=== PATIENT | female | born 1940 | race African-American/Black ===

== ENCOUNTER 2016-10-21 06:49 | Inpatient (IN) | payer OTHER, BC ==
[~2016-10-21] VITALS: Ht 165.1 cm; Wt 79.6 kg
--- NOTE | ~2016-10-21 | H ---
[facility] [place] [address] HISTORY AND PHYSICAL Name: TABITHA PRINGLE Room #: 441-P ADM IN M.R.#: [id number] Admission: 10/21/16 Attend Phys: Catina Scott Discharge: Date of : 36 Report #: [id number] THIS REPORT FOR: //name// CC: ELIZ Mallory CHIEF COMPLAINT: This is a 76-year-old female with diarrhea times 10 days. HISTORY OF PRESENT ILLNESS: This is a patient who lives for the most part independently and has been doing well up until about 10 days ago when she had the onset of diarrhea that continued. She tried [id number]-[id number] medications, but this did not fix the problem and she also had associated nausea, vomiting and anorexia. Denies fevers, chills or sweats, may have had a little bit of blood in her stool, but not sure. She then got so weak at home that she fell and had to come to the hospital and is subsequently admitted. PAST MEDICAL HISTORY: Noteworthy for ischemic heart disease, diabetes, hypertension, cardiomyopathy on an ischemic basis. She has had a previous history of thyroid disease, had an ovarian dermoid cyst in the past. PAST SURGICAL HISTORY: Includes cholecystectomy, total left knee replacement, total abdominal hysterectomy. She had a pacemaker implantation. She has also had left knee replacement and numerous stent placements in the coronary circulation. MEDICATIONS: List includes carvedilol, atorvastatin, lisinopril, furosemide, NovoLog 5 units 3 times a day, amiodarone 200 mg daily, Lantus 15 units at bedtime and Coumadin 2.5 mg daily. FAMILY HISTORY: Noncontributory. ALLERGIES: She has no known allergies. REVIEW OF SYSTEMS: Otherwise, negative. PHYSICAL EXAMINATION: GENERAL: Shows her to be frail in appearance, but in no distress. VITAL SIGNS: Stable. HEENT: Otherwise, negative. NECK: Supple, without thyromegaly or adenopathy. CHEST: Clear. CARDIOVASCULAR: Shows a regular rate and rhythm without murmur. ABDOMEN: Soft and nontender, without hepatosplenomegaly. EXTREMITIES: Negative. NEUROLOGIC: Nonfocal. LABORATORY DATA: Chemistries were negative other than a glucose of 197. [facility] [address] [place] [address] HISTORY AND PHYSICAL Name: TABITHA PRINGLE Room #: [address] [place] [address] [place] ..#: [id number] Admission: 10/21/16 Attend Phys: Catina Scott Discharge: Date of : 38 Report #: [id number] Creatinine was 1.2, potassium 3.4, hemoglobin 10.8, white count 7000. Stool cultures are pending. CT of the head was negative. CT of the abdomen was negative. Chest x-ray was negative. ASSESSMENT: This is a 76-year-old female with what appears to be gastroenteritis, but 10 days of symptom seems unlikely to be viral etiology and I think we have to entertain other causes. For the time being, we will give IV fluids, bowel rest and close monitoring. By: 1801 [id number] Toni Mallory MD /nt
--- NOTE | ~2016-10-21 | EKG ---
[place] [address] [facility] [place] [address] ELECTROCARDIOGRAM REPORT Name: TABITHA PRINGLE Room #: [facility]#: [id number] Admission: 10/21/16 Attend Phys: Discharge: Date of : 38 Report #: [id number] THIS REPORT FOR: //name// [facility] ED Test Date: 2016-10-21 Test Time: 07:30:14 Pat Name: TABITHA PRINGLE Department: Room: Gender: F Marketing Support Coordinator: vikram : 1940 Requested By: Chari Amaya Order Number: [id number] MD: Matias Jin Measurements Intervals [place] Rate: 59 P: 16 DE: 193 QRS: -40 QRSD: 110 T: 144 QT: 474 QTc: 470 Interpretive Statements Sinus rhythm Atrial premature complexes LVH with secondary repolarization abnormality Inferior infarct, old Probable anterior infarct, age indeterminate No previous ECG available for comparison Electronically Signed On 10-21-2016 9:09:37 CDT by Matias Jin [email or web address] <ELECTRONICALLY SIGNED> By: Matias Jin MD, [facility] 10/21/16 0909 0730 9 Matias Jin MD, FACC /EPI
--- NOTE | ~2016-10-21 | D ---
[facility] [place] [address] DISCHARGE SUMMARY Name: TABITHA PRINGLE Room #: 441-P ADM IN M.R.#: [id number] Admission: 10/21/16 Attend Phys: Catina Scott Discharge: Date of : 38 Report #: [id number] THIS REPORT FOR: //name// CC: ELIZ Mallory FINAL DIAGNOSES: 1. Gastroenteritis. 2. Diabetes type 2. 3. Weakness. 4. Abdominal pain. HOSPITAL COURSE: The patient was admitted from home with weakness, diarrhea and abdominal pain. CT was unremarkable. With conservative treatment, her symptoms improved. C. diff was negative. Other studies were unremarkable. Her INR was 4.4 at admission. Coumadin was held. She had no other interval complication. PHYSICAL EXAMINATION: GENERAL: On the day of discharge, she was awake and alert. VITAL SIGNS: Stable. LUNGS: Clear. HEART: Regular. ABDOMEN: Soft. EXTREMITIES: With 1+ edema. DISPOSITION: She is transferring to a assisted facility in [place]. I will resume her insulin and Coumadin orders at a lower dose along with Coreg, lisinopril and Lipitor. PT, OT and diabetic diet. Activity as tolerated. Accu-Cheks a.c. and at bedtime. Follow up with Dr. Mallory in 6 weeks. <ELECTRONICALLY SIGNED> By: Addison Miranda MD 10/25/16 1343 1313 1337 Addison Miranda MD /vicky
[~2016-10-21 06:49] MED LIST: ACETAMINOPHEN325 M1 PO; ALDACTONE25 MG PO; ATORVASTATIN CA40 MG PO; CARVEDILOL12.5 MG PO; CARVEDILOL25 MG PO; CIPRO250 M1 PO; COUMADIN 10MG T10 M1 PO; COUMADIN 3 MG TA3 M1 PO; COUMADIN 5 MG TA5 M1 PO; DEMADEX20 MG PO; DIGITEK125 MCG PO; FLAGYL 250 MG250 MG PO; FLAGYL500 MG PO; FUROSEMIDE 80 M80 M1 PO; HYDROCODON-ACE1 EAC7 PO; JUVEN PACKET1 EACH PO; LANTUS SOL100 UNIT/1 SUBQ; LANTUS SUBQ; LEVAQUIN 500 M500 M2 PO; LEVEMIR100 UNIT/1 SUBQ; LIPITOR40 MG PO; LISINOPRIL40 MG PO; LORTAB 5-325 M1 EACH PO; NOVOLIN N100 UNIT/1; NOVOLOG100 UNIT/1 SUBQ; PACERONE 200 M200 M1 PO; POTASSIUM20 PO; PROCTOFOAM-HC F10 GM RC; PROVENTIL HFA6.7 G1 INH; TOPAMAX 25 MG T25 M1 PO; ULTRAM 50MG TAB50 MG PO; VITAMIN C500 M1 PO
[2016-10-21 07:44] LABS: ABSOLUTE NEUTROPHILS 5.7 thou/uL (1.4-8.2); BASOPHILS 0.4 % (0.0-2.0); EOSINOPHILS 0.7 % (0.0-3.0); HEMATOCRIT 34.2 % (37.0-47.0); HEMOGLOBIN 10.8 gm/dL (12.0-15.0); LYMPHOCYTES 9.6 % (24.0-44.0); MCH 27.4 pg (26.0-34.0); MCHC 31.6 g/dL (28.0-37.0); MCV 86.7 fL (80.0-100.0); MONOCYTES 7.3 % (1.0-8.0); PLATELET COUNT 202 thou/uL (150-400); RBC 3.94 mil/uL (4.20-5.00); RDW 17.9 % (10.5-14.5)
[2016-10-21] MEDS ORDERED: COUMADIN 2.5MG2.5 M1 PO (07:45)
[2016-10-21 07:48] LABS: CALCIUM 8.7 mg/dL (8.5-10.1); CREATININE 1.2 mg/dL (0.6-1.3); POTASSIUM 3.4 mmol/L (3.5-5.1)
[2016-10-21 07:57] LABS: APTT 42.6 Seconds (24.5-32.8); INR 4.4; PROTIME 44.5 Seconds (9.3-11.4)
[2016-10-21 08:05] LABS: MANUAL DIFF NO
[2016-10-22] MEDS ORDERED: CARVEDILOL12.5 MG PO (01:07)
[2016-10-22 05:53] LABS: CALCIUM 8.2 mg/dL (8.5-10.1); POTASSIUM 3.6 mmol/L (3.5-5.1)
[2016-10-25] MEDS ORDERED: ACETAMINOPHEN325 M1 PO (13:02)
[2016-10-25] MEDS ORDERED: LISINOPRIL20 MG PO (13:02)
[2016-10-25] MEDS ORDERED: LANTUS100 UNIT/M SUBQ (13:11)
[2016-10-25] MEDS ORDERED: COUMADIN 1MG TAB1 M1 PO (13:11)
[2016-10-25] MEDS ORDERED: LIPITOR10 MG PO (13:11)
[2016-10-25] MEDS ORDERED: NOVOLOG100 UNIT/1 SUBQ (13:11)
== END 2016-10-25 15:17 | DRG 392 ==
LOC: ER 06:49 → 4S 09:19 → EROBS 09:19 → 4S 11:13
PROVIDERS: Emergency Medicine; Internal Medicine
DX: K52.9 Noninfective gastroenteritis and colitis, unspecified (principal); I48.91 Unspecified atrial fibrillation; I25.10 Atherosclerotic heart disease of native coronary artery without angina pectoris; E11.9 Type 2 diabetes mellitus without complications; I11.9 Hypertensive heart disease without heart failure; I25.5 Ischemic cardiomyopathy; Z96.652 Presence of left artificial knee joint; Z96.622 Presence of left artificial elbow joint; W18.39XA Other fall on same level, initial encounter; Y93.89 Activity, other specified; Y92.89 Other specified places as the place of occurrence of the external cause; Z95.5 Presence of coronary angioplasty implant and graft; Z90.49 Acquired absence of other specified parts of digestive tract; Z95.0 Presence of cardiac pacemaker; Z90.710 Acquired absence of both cervix and uterus; Y99.8 Other external cause status
CPT/HCPCS: 10100

== ENCOUNTER 2017-06-24 20:52 | Inpatient (IN) | payer OTHER, BC ==
[~2017-06-24] VITALS: Ht 165.1 cm; Wt 65.0 kg
--- NOTE | ~2017-06-24 | HC ---
[facility] [place] [address] CONSULTATION Name: TABITHA PRINGLE Room #: 363-P ADM IN M.R.#: [id number] Admission: 06/25/17 Attend Phys: Catina Scott Discharge: Date of : 38 Report #: [id number] THIS REPORT FOR: //name// CC: Toni Mallory DATE OF SERVICE: 06/25/2017 HISTORY OF PRESENT ILLNESS: The patient is a very pleasant 77-year-old female who I have been asked to see for further evaluation of her painless hematochezia. She was found to have an INR of 17.1 in the Emergency Room. She describes hematochezia over the course of the last 24 hours or so. She denies significant abdominal pain or other GI symptoms. She did have some loose bowel movements, but denies hematemesis or epigastric pain. MEDICAL HISTORY: Notable for left knee replacement, internal defibrillator pacemaker, AFib, coronary artery disease, diabetes, hypertension, bronchitis, hysterectomy. She had a flexible sigmoidoscopy in 2014, which revealed patchy proctitis and left-sided diverticulosis without evidence of active bleeding. MEDICATIONS ON PRESENTATION: Include Zestril, Tylenol, Lipitor, Lantus, NovoLog, Coumadin, Voltaren, Coreg, AccuNeb, K-Dur, Imodium and Lasix. ALLERGIES: She is allergic to nothing. MEDICATIONS: As above. SOCIAL HISTORY AND FAMILY HISTORY: Noncontributory. REVIEW OF SYSTEMS: Negative for weight loss, weakness or fatigue. She denies head, eyes, ears, nose or throat complaints. She denies chest pain, chest palpitation, chest pressure, cough, shortness of breath, wheezing, genitourinary, musculoskeletal or neuropsychiatric complaints. PHYSICAL EXAMINATION: VITAL SIGNS: Afebrile, vital signs stable. HEENT: Nonicteric. NECK: No JVD, thyromegaly or bruits. CARDIOVASCULAR: Irregular. LUNGS: Clear anteriorly. ABDOMEN: Soft, nondistended, nontender, normoactive bowel sounds. No hepatosplenomegaly. No stigmata of chronic liver disease. No abnormal masses or bruits. EXTREMITIES: No clubbing, cyanosis or edema. NEUROLOGIC: Grossly intact. RECTAL: Deferred. [address] [address] CONSULTATION Name: TABITHA PRINGLE Room #: 363- ADM IN M.R.#: [id number] Admission: 06/25/17 Attend Phys: Catina Scott Discharge: Date of : 38 Report #: [id number] PERTINENT LABORATORY DATA: Include INR 17.2, PT 167.3. Chemistry reviewed. Potassium 3.0, venous bicarbonate 19. Serum chemistry otherwise normal. Hemoglobin 7.0, most recent 8.4 approximately 12 hours earlier and before that 10.2. She had a nuclear medicine bleeding scan, which revealed faint activity in the upper abdomen, suspected stomach or duodenum without ability to completely exclude transverse colonic activity. Numerous diverticula were noted. ASSESSMENT AND PLAN: In summary, the patient has painless hematochezia. I doubt an upper source. I would treat her empirically, though with IV PPI therapy. I would correct her INR, which has improved significantly and replace her hemoglobin. We will follow concurrently. At this point, I have no plans for GI intervention or further diagnostic testing. We will follow. Thanks again for allowing us to participate in the care of this very nice lady. <ELECTRONICALLY SIGNED> By: Freeman Eaton MD 06/26/17 1451 1146 1928 Freeman Eatno MD /nt
--- NOTE | ~2017-06-24 | S ---
[facility] [place] [address] SURGICAL PATH RPT PROCEDURE Name: ANNETTE PRINGLE Room #: 363-P ADM IN M.R.#: [id number] Admission: 06/25/17 Date of : 38 Discharge: Report #: [id number] Path Case #: [id number] PATHOLOGY REPORT COLLECTION DATE: 06/27/2017 RECEIVED DATE: 06/27/2017 SUBMITTING PHYS: Dr. Vahe Wong OTHER PHYS: Dr. Toni Mallory SPECIMEN(S) RECEIVED: A.Bx antrum, R/O H pylori * * * * * * * * * * * * FINAL DIAGNOSIS: Gastric mucosa, antrum rule out H. pylori, endoscopic biopsy: - Moderate reactive gastropathy with focal active gastritis. - Negative for intestinal metaplasia or atrophy. - Negative for Helicobacter pylori. COMMENT: Helicobacter pylori immunohistochemical stain performed on block A1-negative. An intensive search for Helicobacter pylori-like organisms is negative. Absence of such organisms does not entirely exclude the possibility and may be due to sampling. Other possible etiologies may include chemical gastritis, autoimmune gastritis, gastritis associated with inflammatory bowel disease. Please correlate with clinical, endoscopic, and microbiological studies if clinically indicated. (IUV:pit; 06/28/2017) PATHOLOGIST: Dorothy Lezama M.D. REPORT ELECTRONICALLY SIGNED BY: Dorothy Lezama M.D. DATE/TIME: 06/28/2017 15:47 * * * * * * * * * * * * GROSS PATHOLOGY: Received in formalin labeled "Annette Pringle, BX, antrum," are 2 segments of marrufo soft tissue measuring 0.4 x 0.5 x 0.3 cm in aggregate dimensions and ranging from 0.3 to 0.5 cm in maximum dimension. The specimen is submitted entirely in cassette A1. (TSD; 06/27/2017) CLINICAL HISTORY: Pre-OP DX: GI bleed [address] [address] SURGICAL PATH RPT PROCEDURE Name: ANNETTE PRINGLE Room #: 363-P ADM IN M.R.#: [id number] Admission: 06/25/17 Date of : 38 Discharge: Report #: [id number] Path Case #: [id number] Post-OP DX: Hiatal hernia, esophageal nodules INITIAL CPT CODE(S): A; 16231, 45445 Professional services performed by [facility] [address], [place] [address] Technical services performed by [facility] at [address] [place] [address], [facility] [place] [address], [place] [address]. [facility] [address] [place] [address] PHONE: [phone] DIRECTOR: Keith Flores M.D. * * * END OF REPORT * * *
--- NOTE | ~2017-06-24 | EKG ---
[address] [address] ELECTROCARDIOGRAM REPORT Name: TABITHA PRINGLE Room #: 363-P ADM IN M.R.#: [id number] Admission: 06/25/17 Attend Phys: Catina Scott Discharge: Date of : 38 Report #: [id number] THIS REPORT FOR: //name// [facility] ED Test Date: 2017-06-24 Test Time: 21:17:32 Pat Name: TABITHA PRINGLE Department: Room: 363 Gender: F Data Entry Clerk: CADENCE : 1940 Requested By: Clair Fletcher Order Number: [id number] MD: Matias Jin Measurements Intervals [place] Rate: 82 P: -38 VA: 195 QRS: -37 QRSD: 144 T: 54 QT: 447 QTc: 522 Interpretive Statements Sinus rhythm Poor R wave progression Nonspecific intraventricular conduction delay Compared to ECG 10/21/2016 07:30:14 Atrial premature complex(es) no longer present nonspecific change in the ST and T-wave segments Electronically Signed On 06-25-2017 13:17:01 DIRECTOR CORPORATE COMMUNICATIONS by Matias Jin [email or web address] <ELECTRONICALLY SIGNED> By: Matias Jin MD, FAC 06/25/17 1317 16 16 Matias Jin MD, [facility] /EPI
--- NOTE | ~2017-06-24 | H ---
[facility] [place] [address] HISTORY AND PHYSICAL Name: TABITHA PRINGLE Room #: 363-P ADM IN M.R.#: [id number] Admission: 06/25/17 Attend Phys: Catina Scott Discharge: Date of : 38 Report #: [id number] THIS REPORT FOR: //name// CC: Toni Mallory DATE OF SERVICE: 06/25/2017 CHIEF COMPLAINT: This is a 77-year-old female with rectal bleeding. HISTORY OF PRESENT ILLNESS: This is a patient with a background history of paroxysmal atrial fibrillation, ischemic heart disease, diabetes, hypertension, who also has a history of thyroid disease and has had an ovarian cyst removed many years ago, also has had a cholecystectomy, left knee replacement, total abdominal hysterectomy, pacemaker implantation and coronary stents. She began to have issues with rectal bleeding about 1 o'clock yesterday afternoon. This progressed to the point where she was brought to the Emergency Room and we also noted at that time she had marked elevation of her INR at 17. MEDICATIONS: List needs to be clarified. FAMILY HISTORY: Noncontributory. ALLERGIES: She has no known drug allergies. REVIEW OF SYSTEMS: No specific cardiopulmonary or other GI complaints. PHYSICAL EXAMINATION: GENERAL: Shows her to be awake, alert, oriented. She is in no distress. Does look pale. HEENT: Otherwise, negative. NECK: O2 is in place. CHEST: Clear. CARDIOVASCULAR: Shows a regular rate and rhythm. ABDOMEN: Soft and nontender. EXTREMITIES: No cyanosis, clubbing or edema. NEUROLOGIC: Nonfocal. LABORATORY PARAMETERS: Show evidence of hemoglobin now 7 this morning. Initial INR 17 and now the INR after treatment 3.4. Potassium is 3.0. Albumin 1.8. ASSESSMENT: This is a patient with GI bleed, almost invariably associated with severe coagulation deficit from Coumadin. I have not seen this patient since December and I do not know if she has had protimes checked in the interim. This may reflect her poor social situation. [facility] [address] [place] [address] HISTORY AND PHYSICAL Name: TABITHA PRINGLE Room #: 363-P ADM IN M.R.#: [id number] Admission: 06/25/17 Attend Phys: Catina Scott Discharge: Date of : 38 Report #: [id number] PLAN: Correction of INR along with blood transfusions as necessary and GI workup when anticoagulation status is more stable. By: 1101 1447 Toni Mallory MD /ALBIN
[~2017-06-24 20:52] MED LIST changes: +COUMADIN 1MG TAB1 M1 PO; +COUMADIN 2.5MG2.5 M1 PO; +LANTUS100 UNIT/M SUBQ; +LIPITOR10 MG PO; +LISINOPRIL20 MG PO
[2017-06-24 21:56] LABS: ABSOLUTE NEUTROPHILS 8.3 thou/uL (1.4-8.2); BASOPHILS 0.8 % (0.0-2.0); EOSINOPHILS 1.1 % (0.0-3.0); HEMATOCRIT 31.9 % (37.0-47.0); HEMOGLOBIN 10.2 gm/dL (12.0-15.0); MCHC 32.1 g/dL (28.0-37.0); MCV 87.2 fL (80.0-100.0); MONOCYTES 4.1 % (1.0-8.0); PLATELET COUNT 200 thou/uL (150-400); RBC 3.66 mil/uL (4.20-5.00); RDW 15.6 % (10.5-14.5)
[2017-06-24 21:57] LABS: URINE BILIRUBIN 1+ (Negative); URINE BLOOD 3+ (Negative); URINE COLOR YELLOW; URINE GLUCOSE-RANDOM* NEGATIVE (Negative); URINE KETONES 2+ (Negative); URINE NITRITE NEGATIVE (Negative); URINE PROTEIN (DIPSTICK) 2+ (Negative); URINE SPECIFIC GRAVITY >= 1.030 (1.003-1.035)
[2017-06-24 22:00] LABS: ICTOTEST (BILI CONFIRMATORY) Positive (Negative)
[2017-06-24 22:08] LABS: ANION GAP 8 mmol/L (7-16); BUN 16 mg/dL (7-18); CALCIUM 6.6 mg/dL (8.5-10.1); CHLORIDE 116 mmol/L (98-107); CO2 19 mmol/L (21-32); CREATININE 0.7 mg/dL (0.6-1.0); GLUCOSE 116 mg/dL (74-106); SODIUM 143 mmol/L (136-145)
[2017-06-24 22:11] LABS: MANUAL DIFF NO
[2017-06-24] MEDS ORDERED: COUMADIN 4 MG TA4 M1 PO (22:11)
[2017-06-24] MEDS ORDERED: VOLTAREN GEL 1100 G2 TOP (22:11)
[2017-06-24] MEDS ORDERED: ALBUTEROL2.5 MG/31 INH (22:12)
[2017-06-24] MEDS ORDERED: POTASSIUM20 PO (22:12)
[2017-06-24] MEDS ORDERED: NYAMYC15 GM TOP (22:13)
[2017-06-24] MEDS ORDERED: MAGNESIUM-VIT1 EACH PO (22:13)
[2017-06-24 22:14] LABS: ALBUMIN 1.8 g/dL (3.4-5.0); ALKALINE PHOSPHATASE 58 U/L (46-116); SGOT 11 U/L (15-37); SGPT < 6 U/L (30-65); TOTAL BILIRUBIN 0.6 mg/dL (<0.1-1.0); TOTAL PROTEIN 5.4 g/dL (6.4-8.2)
[2017-06-24] MEDS ORDERED: LOPERAMIDE 2 MG2 M1 PO (22:14)
[2017-06-24] MEDS ORDERED: LASIX 20 MG TAB20 MG PO (22:15)
[2017-06-24 22:25] LABS: BACTERIA >30 Many /HPF (None Seen); CASTS None Seen /LPF (None Seen); CRYSTALS None Seen /LPF (None Seen); SQUAMOUS None Seen /LPF (0-3); URINE RBC 3-10 Few /HPF (0-2); URINE WBC None Seen /HPF (0-5)
[2017-06-24 22:26] LABS: PROTIME 167.3 Seconds (9.3-11.4)
[2017-06-24 22:56] LABS: INR 17.2
[2017-06-25] VITALS (11 sets, daily range): BP systolic 114–147; BP diastolic 29–97
[2017-06-25 03:42] LABS: HEMATOCRIT 26.5 % (37.0-47.0); HEMOGLOBIN 8.4 gm/dL (12.0-15.0)
[2017-06-25 07:41] LABS: HEMATOCRIT 22.5 % (37.0-47.0)
[2017-06-25 07:54] LABS: PROTIME 33.8 Seconds (9.3-11.4)
[2017-06-25 07:55] LABS: INR 3.4
[2017-06-25 12:56] LABS: HEMATOCRIT 21.1 % (37.0-47.0); HEMOGLOBIN 6.8 gm/dL (12.0-15.0)
[2017-06-25 13:20] LABS: INR 4.1; PROTIME 41.5 Seconds (9.3-11.4)
[2017-06-25 22:32] LABS: HEMOGLOBIN 9.2 gm/dL (12.0-15.0)
[2017-06-25 22:47] LABS: PROTIME 64.2 Seconds (9.3-11.4)
[2017-06-25 22:51] LABS: INR 6.5
[2017-06-26] VITALS (9 sets, daily range): BP systolic 125–176; BP diastolic 74–102
[2017-06-26 02:02] LABS: HEMATOCRIT 24.3 % (37.0-47.0); HEMOGLOBIN 7.8 gm/dL (12.0-15.0)
[2017-06-26 02:14] LABS: PROTIME 19.7 Seconds (9.3-11.4)
[2017-06-26 02:16] LABS: INR 1.9
[2017-06-26 15:48] LABS: HEMATOCRIT 29.5 % (37.0-47.0); HEMOGLOBIN 9.6 gm/dL (12.0-15.0)
[2017-06-26 15:57] LABS: INR 2.2; PROTIME 22.5 Seconds (9.3-11.4)
[2017-06-27 00:03] VITALS: BP 140/80
[2017-06-27 03:55] VITALS: BP 142/82
[2017-06-27 07:53] VITALS: BP 137/81
[2017-06-27 08:48] LABS: HEMATOCRIT 26.7 % (37.0-47.0); HEMOGLOBIN 8.9 gm/dL (12.0-15.0)
[2017-06-27 08:50] LABS: CALCIUM 8.5 mg/dL (8.5-10.1); INR 1.4; POTASSIUM 4.2 mmol/L (3.5-5.1); PROTIME 14.1 Seconds (9.3-11.4)
[2017-06-27 11:09] VITALS: BP 145/71
[2017-06-27 15:48] VITALS: BP 129/76
[2017-06-27 20:00] VITALS: BP 117/66
[2017-06-28 04:00] VITALS: BP 113/80
[2017-06-28 05:58] LABS: HEMATOCRIT 26.1 % (37.0-47.0); HEMOGLOBIN 8.5 gm/dL (12.0-15.0)
[2017-06-28 06:04] LABS: INR 1.2
[2017-06-28 07:40] VITALS: BP 133/61
[2017-06-28 11:35] VITALS: BP 105/44
[2017-06-28 20:20] VITALS: BP 113/46
[2017-06-29 04:00] VITALS: BP 132/89
[2017-06-29 08:14] VITALS: BP 120/68
[2017-06-29 11:57] VITALS: BP 119/75
[2017-06-29 13:20] VITALS: BP 119/75
[2017-06-29 16:06] VITALS: BP 128/64
[2017-06-29 20:35] VITALS: BP 121/66
[2017-06-30 05:00] VITALS: BP 117/61
[2017-06-30 06:08] LABS: HEMATOCRIT 25.8 % (37.0-47.0); HEMOGLOBIN 8.2 gm/dL (12.0-15.0)
[2017-06-30 08:00] VITALS: BP 110/62
[2017-06-30 12:00] VITALS: BP 123/61
[2017-06-30 15:55] VITALS: BP 109/55
[2017-06-30 20:00] VITALS: BP 114/60
[2017-07-01 04:00] VITALS: BP 108/77
[2017-07-01] MEDS ORDERED: POTASSIUM20 PO (08:55)
[2017-07-01] MEDS ORDERED: LASIX 20 MG TAB20 MG PO (08:55)
[2017-07-01] MEDS ORDERED: PANTOPRAZOLE SO40 M1 PO (08:55)
[2017-07-01] MEDS ORDERED: TYLENOL325 MG PO (08:55)
[2017-07-01] MEDS ORDERED: ALBUTEROL2.5 MG/31 INH (08:56)
[2017-07-01 09:01] VITALS: BP 125/85
[2017-07-01 12:10] VITALS: BP 119/75
[2017-07-01 12:17] VITALS: BP 119/75
[2017-07-04 15:32] VITALS: BP 119/75
== END 2017-07-01 14:29 | disposition home health service (06) | DRG 377 ==
LOC: ER 20:52 → EROBS 23:25 → 3W 06-25 00:55
PROVIDERS: Internal Medicine; Internal Medicine Gastroenterology; Nurse Practitioner Family
PROC: 30233L1 Transfusion of Nonautologous Fresh Plasma into Peripheral Vein, Percutaneous Approach (ICD-10-PCS; principal; 2017-06-25)
PROC: 30233N1 Transfusion of Nonautologous Red Blood Cells into Peripheral Vein, Percutaneous Approach (ICD-10-PCS; principal; 2017-06-25)
PROC: 30233K1 Transfusion of Nonautologous Frozen Plasma into Peripheral Vein, Percutaneous Approach (ICD-10-PCS; principal; 2017-06-25)
PROC: 0DJD8ZZ Inspection of Lower Intestinal Tract, Via Natural or Artificial Opening Endoscopic (ICD-10-PCS; 2017-06-27)
PROC: 0DB68ZX Excision of Stomach, Via Natural or Artificial Opening Endoscopic, Diagnostic (ICD-10-PCS; 2017-06-27)
DX: K57.91 Diverticulosis of intestine, part unspecified, without perforation or abscess with bleeding (principal); E43 Unspecified severe protein-calorie malnutrition; D68.59 Other primary thrombophilia; Z96.652 Presence of left artificial knee joint; Z96.622 Presence of left artificial elbow joint; I25.10 Atherosclerotic heart disease of native coronary artery without angina pectoris; E11.9 Type 2 diabetes mellitus without complications; I10 Essential (primary) hypertension; E87.6 Hypokalemia; I48.0 Paroxysmal atrial fibrillation; I25.9 Chronic ischemic heart disease, unspecified; K92.1 Melena; K59.00 Constipation, unspecified; E87.5 Hyperkalemia; Z68.23 Body mass index [BMI] 23.0-23.9, adult; Z95.0 Presence of cardiac pacemaker; Z95.5 Presence of coronary angioplasty implant and graft; Z90.710 Acquired absence of both cervix and uterus; Z90.49 Acquired absence of other specified parts of digestive tract; Z79.01 Long term (current) use of anticoagulants; K62.3 Rectal prolapse
CPT/HCPCS: 10779; 62110; 62900; 70005

== ENCOUNTER 2017-10-02 11:50 | Inpatient (IN) | payer OTHER ==
[~2017-10-02] VITALS: Ht 152.4 cm; Wt 69.1 kg
--- NOTE | ~2017-10-02 | H ---
[facility] [place] [address] HISTORY AND PHYSICAL Name: TABITHA PRINGLE Room #: 417-I ADM IN .R.#: [id number] Admission: 10/02/17 Attend Phys: Micheal Roque MD Discharge: Date of : 38 Report #: [id number] THIS REPORT FOR: //name// CC: Toni Roque DATE OF SERVICE: 10/02/2017 CHIEF COMPLAINT: GI bleed. HISTORY OF PRESENT ILLNESS: The patient is a 77-year-old female who came to the Emergency Room with a history of 3 days of rectal bleeding. She describes some bright red blood and does take Coumadin for history of atrial fibrillation. She has had no nausea or vomiting. No fever or chills. PAST MEDICAL HISTORY: AFib, pacemaker, coronary artery disease with prior stent x 2, diabetes type 2, hypertension. She had a GI bleed in June 2017. PAST SURGICAL HISTORY: She has had a knee replacement, hysterectomy. FAMILY HISTORY: Noncontributory. SOCIAL HISTORY: No chronic alcohol or tobacco use. ALLERGIES: None. MEDICATIONS: Tramadol, Demadex, Zestril, amiodarone, Coreg, NovoLog, iron, Lantus, Coumadin, Lipitor, Protonix. REVIEW OF SYSTEMS: She complains of some acid reflux. Otherwise, no headache, chest pain, shortness of breath, abdominal pain, dysuria, syncope. OBJECTIVE: VITAL SIGNS: Temperature 36, pulse 95, respirations 18, blood pressure 154/84, O2 sat 95% on room air. GENERAL: She is awake and alert, in no distress. HEAD AND NECK: Unremarkable. LUNGS: Clear. HEART: Irregular. ABDOMEN: Soft, normoactive bowel sounds. EXTREMITIES: 1+ ankle edema. NEUROLOGIC: Motor strength 3/5 throughout. Hemoglobin is 9.5. ASSESSMENT: [facility] [address] [place] [address] HISTORY AND PHYSICAL Name: TABITHA PRINGLE Room #: 417-I [facility]#: [id number] Admission: 10/02/17 Attend Phys: Micheal Roque MD Discharge: Date of : 38 Report #: [id number] 1. Gastrointestinal bleed. 2. Atrial fibrillation. 3. Microcytic anemia. 4. Chronic Coumadin use. 5. Cystitis. 6. Diabetes type 2. PLAN: I will ask the GI service to see her, hold her Coumadin for now and just clear liquid diet. Follow blood counts. <ELECTRONICALLY SIGNED> By: Addison Miranda MD 10/04/17 0844 1317 1329 Addison Miranda MD /nt
--- NOTE | ~2017-10-02 | DEA ---
[facility] [place] [address] SUMMARY Name: TABITHA PRINGLE Room #: 417-I [facility] IN M.R.#: [id number] Admission: 10/02/17 Attend Phys: Micheal Roque MD Discharge: 10/06/17 Date of : 38 Report #: [id number] THIS REPORT FOR: //name// CC: Toni Roque DATE OF SERVICE: 10/06/2017 FINAL DIAGNOSES: 1. Cardiac arrest. 2. Asystole. 3. Pulmonary embolus. 4. Deep venous thrombosis. 5. Chronic kidney disease. 6. Atrial fibrillation. 7. Coronary artery disease. 8. Ischemic cardiomyopathy. 9. Acute lower gastrointestinal bleed. 10. Anemia due to acute blood loss. HOSPITAL COURSE: The patient was admitted with suspected lower GI bleed. She apparently had been on Coumadin for history of atrial fibrillation at home. It is unclear how this was being monitored or when the last monitoring was obtained. She had no cardiopulmonary symptoms at the time of admission through viewing the notes. In the course of her workup, a CT of the abdomen was obtained, this suggested lower lung field pulmonary embolus. VQ scan was high probability for PE. Doppler ultrasound of the legs revealed bilateral DVT. Please see those separately dictated reports. Dr. Luis saw her in consultation from the pulmonary service. I spoke to him regarding the status of her situation, it was a challenging management situation given the unexplained GI bleed and this had been her second event without explanation. She had been scoped upper and lower in the fall of 2016, without a definitive diagnosis. Also, of note, her INR after the first day was therapeutic and in fact was up to 2.5. After discussion, Dr. Luis and I felt that an IVC filter was warranted given the unexplained situation and asymptomatic nature. This was performed per IR, please see that dictated note. Then, suddenly in the evening hours on the , she developed cardiac arrest. A full code blue was entertained. Please see those notes. She never regained spontaneous pulse, respirations, or blood pressure. The code was terminated due to acute cardiac arrest. <ELECTRONICALLY SIGNED> By: Addison Miranda MD 10/07/17 1005 1216 1255 Addison Miranda MD /nt
--- NOTE | ~2017-10-02 | HC ---
[facility] [place] [address] CONSULTATION Name: TABITHA PRINGLE Room #: 417-I [facility] IN M.R.#: [id number] Admission: 10/02/17 Attend Phys: Micheal oRque MD Discharge: 10/06/17 Date of : 36 Report #: [id number] THIS REPORT FOR: //name// CC: Cameron Roque PULMONARY CONSULTATION PRIMARY CARE PHYSICIAN: Toni Mallory MD REFERRING PHYSICIAN: Addison Miranda MD REASON FOR REFERRAL: Pulmonary embolus. HISTORY OF PRESENT ILLNESS: The patient is a 77-year-old -N[place]alese female who presents to the Emergency Room with rectal bleeding for the past [address] abdomen and pelvis performed showing evidence of pulmonary embolus. A pulmonary consultation was requested. The patient is a fair historian at this moment. She appears somewhat weak. She is awake and is able to answer some questions. The patient is on chronic anticoagulation for chronic atrial fibrillation. She is on Coumadin. She states that she has never had venothromboembolic disease in the past. She has been short of breath for the past months, but denies any chest pain, hemoptysis. For the past 3 days, she is noted bright red blood per rectum. Bleeding did not stop where she then presented to the Emergency Room. She states that she has had a history of rectal bleeding in the past where she was hospitalized in June 2017 at [facility]. The patient also states that she has been sedentary for some time. This is due to dyspnea on exertion along with weakness. Otherwise, denies any recent surgery, fall or trauma. She denies any recent travel. PAST MEDICAL AND SURGICAL HISTORY: Notable for chronic atrial fibrillation on chronic anticoagulation, history of bradycardia, status post permanent pacemaker placement in 2005, status post defibrillator implantation, coronary artery disease with past history of myocardial infarction, severe ischemic [facility] [address] [place] [address] CONSULTATION Name: TABITHA PRINGLE Room #: 417-I [facility].#: [id number] Admission: 10/02/17 Attend Phys: Micheal Roque MD Discharge: 10/06/17 Date of : 36 Report #: [id number] cardiomyopathy with ejection fraction of 35%, diabetes mellitus, hypertension, chronic kidney disease. ALLERGIES: None noted. HOME MEDICATIONS: Reviewed this include Tylenol, K-Dur, Lasix, Protonix, Lipitor, Coumadin 5 mg once a day, insulin supplements, iron supplements, NovoLog, Coreg, amiodarone, Zestril, Demadex, Ultram. FAMILY HISTORY: Noncontributory. SOCIAL HISTORY: She denies any tobacco or alcohol use. She lives with her son. REVIEW OF SYSTEMS: As mentioned above is notable for rather sedentary lifestyle more recently. Otherwise, 10-point system review negative. She also notes that she had been losing some weight about 50 pounds over the past several months. PHYSICAL EXAMINATION: GENERAL: She is awake, but appears somewhat weak, mild distress. VITAL SIGNS: Temperature is 98 degrees Fahrenheit, pulse is 82, respiratory rate is 20, blood pressure is 110/67 mmHg, saturation 96%. HEENT: Normocephalic, atraumatic. NECK: Supple, without lymphadenopathy or thyromegaly. CHEST: Breath sounds are fair due to poor effort. No obvious wheezes. Few scattered crackles in the bases. CARDIOVASCULAR: Heart sounds, normal S1, S2. There are no murmurs or gallop. There is no JVD, no carotid bruit. Pulses are 2+/4+ bilaterally. ABDOMEN: Soft, nontender, no organomegaly or masses felt. GENITOURINARY: Deferred. RECTAL: Deferred. EXTREMITIES: There is no edema, cyanosis or clubbing. LABORATORY DATA: CT abdomen and pelvis as mentioned above showing bilateral pulmonary embolus. There is moderate pulmonary embolus noted on the right, milder degree on the left lung field. Note that she did not have a CT chest angiogram, but rather CT abdomen and pelvis. Leg Doppler ultrasound shows right popliteal nonocclusive thrombosis. CT abdomen and pelvis shows some evidence of ascites, diffuse liver disease, edema and stranding around the pancreas, renal calcification, suggestive of possible vascular calcination of stones. Sodium 139, potassium 3.8, chloride 103, CO2 is 25, BUN is 25, creatinine is 1.3. Her baseline creatinine appears around 1.2-1.7. Albumin 2.7. Hemoglobin 7.3, WBC is 9500, platelets are normal. IMPRESSION: 1. Bilateral pulmonary embolus, deep venous thrombosis in this 77-year-old -[place]e female. Her risk factor appears to be sedentary lifestyle for [address] [address] CONSULTATION Name: TABITHA PRINGLE Room #: 417-I [facility] IN M.R.#: [id number] Admission: 10/02/17 Attend Phys: Micheal Roque MD Discharge: 10/06/17 Date of : 36 Report #: [id number] the past several months. Cannot rule out occult neoplasm. Please see comments below. 2. Recurrent lower gastrointestinal bleed, she is felt to have rectal bleeding. 3. Chronic kidney disease. 4. Anemia, hemoglobin appears to be at baseline around 9 with some evidence of hyperchromic microcytic. 5. Protein-calorie malnutrition, albumin 2.7. 6. Chronic atrial fibrillation, had been on chronic anticoagulation. Admission INR was 1.8. It is now 2.1. 7. Coronary artery disease with ischemic cardiomyopathy. 8. Hypertension. 9. Status post implantable cardioverter defibrillator along with pacemaker. RECOMMENDATION AND DISCUSSION: The patient was symptomatic for about a month ago where dyspnea started. It is felt that the patient likely had a renal thromboembolic event at that time. It is also felt that the patient has failed Coumadin therapy as she had been on Coumadin for some time and INR level presumably been therapeutic in the past, though slightly less therapeutic on admission. She will need a formal evaluation of the lung. I do not think a CT chest angiogram is necessary though a V/Q scan will be helpful to complete evaluation. The CT abdomen and pelvis shows moderate pulmonary embolus more so on the right than the left. I believe the patient will benefit from ongoing anticoagulation rather, but the anticoagulant of choice may be Lovenox given that she is felt to have failed Coumadin therapy. However, with recurrent rectal bleeding, IVC filter may be necessary. We will discuss with Dr. Miranda. Thank you for the consultation. <ELECTRONICALLY SIGNED> By: Atilio Luis MD 10/10/17 [id number] Atliio Luis MD /nt
[~2017-10-02 11:50] MED LIST changes: +ALBUTEROL2.5 MG/31 INH; +COUMADIN 4 MG TA4 M1 PO; +LASIX 20 MG TAB20 MG PO; +LOPERAMIDE 2 MG2 M1 PO; +MAGNESIUM-VIT1 EACH PO; +NYAMYC15 GM TOP; +PANTOPRAZOLE SO40 M1 PO; +TYLENOL325 MG PO; +VOLTAREN GEL 1100 G2 TOP
[2017-10-02 11:51] VITALS: BP 137/84
[2017-10-02] MEDS ORDERED: COUMADIN 5 MG TA5 M1 PO (12:02)
[2017-10-02] MEDS ORDERED: ATORVASTATIN CA40 MG PO (12:02)
[2017-10-02] MEDS ORDERED: IRON325 PO (12:04)
[2017-10-02] MEDS ORDERED: LANTUS SOL100 UNIT/1 SUBQ (12:04)
[2017-10-02] MEDS ORDERED: NOVOLOG100 UNIT/1 SUBQ (12:05)
[2017-10-02 12:06] LABS: ABSOLUTE NEUTROPHILS 6.5 thou/uL (1.4-8.2); BASOPHILS 0.3 % (0.0-2.0); EOSINOPHILS 0.1 % (0.0-3.0); HEMATOCRIT 31.5 % (37.0-47.0); HEMOGLOBIN 9.9 gm/dL (12.0-15.0); LYMPHOCYTES 10.6 % (24.0-44.0); MCH 24.1 pg (26.0-34.0); MCHC 31.3 g/dL (28.0-37.0); MCV 76.9 fL (80.0-100.0); MONOCYTES 7.2 % (1.0-8.0); PLATELET COUNT 238 thou/uL (150-400); POLYS 81.8 % (36.0-66.0); RDW 19.3 % (10.5-14.5); WBC 7.9 thou/uL (4.0-11.0)
[2017-10-02] MEDS ORDERED: COREG25 MG PO (12:06)
[2017-10-02] MEDS ORDERED: PACERONE 200 M200 M1 PO (12:07)
[2017-10-02] MEDS ORDERED: LISINOPRIL20 MG PO (12:07)
[2017-10-02] MEDS ORDERED: DEMADEX20 MG PO (12:08)
[2017-10-02] MEDS ORDERED: TRAMADOL 50 MG50 MG PO (12:08)
[2017-10-02 12:14] LABS: CALCIUM 8.9 mg/dL (8.5-10.1); CREATININE 1.3 mg/dL (0.6-1.0); POTASSIUM 3.6 mmol/L (3.5-5.1)
[2017-10-02 12:20] LABS: ALBUMIN 2.7 g/dL (3.4-5.0); APTT 28.7 Seconds (24.5-32.8); DIRECT BILIRUBIN 0.4 mg/dL (<0.1-0.3); INR 1.8; PROTIME 18.1 Seconds (9.3-11.4); TOTAL BILIRUBIN 0.8 mg/dL (<0.1-1.0); TOTAL PROTEIN 7.9 g/dL (6.4-8.2)
[2017-10-02 13:57] VITALS: BP 131/73
[2017-10-02 14:12] VITALS: BP 152/96
[2017-10-02 14:52] VITALS: BP 138/78
[2017-10-02 20:00] VITALS: BP 151/68
[2017-10-03] VITALS (7 sets, daily range): BP systolic 105–154; BP diastolic 54–92
[2017-10-03 03:03] LABS: URINE BILIRUBIN NEGATIVE (Negative); URINE BLOOD 3+ (Negative); URINE CLARITY TURBID; URINE COLOR YELLOW; URINE GLUCOSE-RANDOM* NEGATIVE (Negative); URINE KETONES NEGATIVE (Negative); URINE LEUKOCYTES 3+ (Negative); URINE NITRITE NEGATIVE (Negative); URINE PROTEIN (DIPSTICK) 2+ (Negative); URINE SPECIFIC GRAVITY 1.015 (1.005-1.035)
[2017-10-03 03:05] LABS: SQUAMOUS >10 Many /LPF (0-3)
[2017-10-03 03:06] LABS: MUCUS 0-3 Light strn/LPF (None Seen); URINE RBC 3-10 Few /HPF (0-2); URINE WBC >25 Many /HPF (0-5)
[2017-10-03 03:07] LABS: BACTERIA >30 Many /HPF (None Seen); COARSE GRANULAR CASTS 0-3 Few /LPF (None Seen); CRYSTALS None Seen /LPF (None Seen); FINE GRANULAR CASTS 0-3 Few /LPF (None Seen)
[2017-10-03 03:08] LABS: HYALINE CASTS 0-3 Few /LPF (None Seen)
[2017-10-03 06:37] LABS: HEMOGLOBIN 9.5 gm/dL (12.0-15.0); MCH 23.7 pg (26.0-34.0); MCHC 30.5 g/dL (28.0-37.0); MCV 77.7 fL (80.0-100.0); RBC 3.99 mil/uL (4.20-5.00); RDW 19.4 % (10.5-14.5); WBC 9.7 thou/uL (4.0-11.0)
[2017-10-03 06:52] LABS: PROTIME 20.1 Seconds (9.3-11.4)
[2017-10-03 17:09] LABS: HEMATOCRIT 30.6 % (37.0-47.0); HEMOGLOBIN 9.4 gm/dL (12.0-15.0)
[2017-10-04] VITALS (7 sets, daily range): BP systolic 104–153; BP diastolic 63–75
[2017-10-04 06:39] LABS: HEMATOCRIT 30.5 % (37.0-47.0); HEMOGLOBIN 9.3 gm/dL (12.0-15.0); MCH 23.6 pg (26.0-34.0); MCHC 30.7 g/dL (28.0-37.0); RBC 3.96 mil/uL (4.20-5.00); RDW 19.9 % (10.5-14.5); WBC 9.5 thou/uL (4.0-11.0)
[2017-10-04 06:57] LABS: INR 2.1; PROTIME 21.7 Seconds (9.3-11.4)
[2017-10-04 06:58] LABS: CALCIUM 8.7 mg/dL (8.5-10.1); CREATININE 1.3 mg/dL (0.6-1.0); POTASSIUM 3.8 mmol/L (3.5-5.1)
[2017-10-04 09:49] LABS: LIPASE 95 U/L (73-393)
[2017-10-04 09:57] LABS: AMYLASE 42 U/L (25-115)
[2017-10-05 04:30] VITALS: BP 104/84
[2017-10-05 06:16] LABS: HEMATOCRIT 30.5 % (37.0-47.0); HEMOGLOBIN 9.3 gm/dL (12.0-15.0); MCH 23.4 pg (26.0-34.0); MCHC 30.4 g/dL (28.0-37.0); MCV 77.2 fL (80.0-100.0); RBC 3.95 mil/uL (4.20-5.00); RDW 19.8 % (10.5-14.5)
[2017-10-05 06:20] LABS: CREATININE 1.7 mg/dL (0.6-1.0); POTASSIUM 4.2 mmol/L (3.5-5.1)
[2017-10-05 07:12] VITALS: BP 104/84
[2017-10-05 07:20] VITALS: BP 102/60
[2017-10-05 10:01] LABS: INR 2.5
[2017-10-05 15:15] VITALS: BP 115/93
[2017-10-05 19:25] VITALS: BP 86/66
== END 2017-10-06 00:15 | DRG 356 ==
LOC: ER 11:50 → 4E 13:07 → EROBS 13:07 → 4E 14:10
PROVIDERS: Emergency Medicine; Internal Medicine Geriatric Medicine; Radiology Vascular & Interventional Radiology
PROC: 06H03DZ Insertion of Intraluminal Device into Inferior Vena Cava, Percutaneous Approach (ICD-10-PCS; principal; 2017-10-05)
DX: K92.2 Gastrointestinal hemorrhage, unspecified (principal); I26.99 Other pulmonary embolism without acute cor pulmonale; E43 Unspecified severe protein-calorie malnutrition; D62 Acute posthemorrhagic anemia; I82.403 Acute embolism and thrombosis of unspecified deep veins of lower extremity, bilateral; R18.8 Other ascites; N30.90 Cystitis, unspecified without hematuria; Z96.622 Presence of left artificial elbow joint; Z96.612 Presence of left artificial shoulder joint; I48.91 Unspecified atrial fibrillation; I25.10 Atherosclerotic heart disease of native coronary artery without angina pectoris; E11.9 Type 2 diabetes mellitus without complications; I46.9 Cardiac arrest, cause unspecified; N18.9 Chronic kidney disease, unspecified; I25.5 Ischemic cardiomyopathy; Z79.01 Long term (current) use of anticoagulants; Z68.29 Body mass index [BMI] 29.0-29.9, adult; Z95.0 Presence of cardiac pacemaker; Z95.5 Presence of coronary angioplasty implant and graft; Z90.710 Acquired absence of both cervix and uterus; Z79.899 Other long term (current) drug therapy
CPT/HCPCS: 10183